=== PATIENT | female | born 1965 | race Caucasian/White ===

== ENCOUNTER 2017-11-15 20:28 | Emergency (ER) | payer OTHER ==
[~2017-11-15] VITALS: Ht 157.5 cm; Wt 90.7 kg
[2017-11-15] MEDS ORDERED: ELIQUIS5 MG PO (20:45)
[2017-11-15] MEDS ORDERED: KEFLEX500 M1 PO (22:12)
[2017-11-15 22:44] VITALS: BP 121/67
== END 2017-11-15 22:45 | disposition home or self-care (01) ==
LOC: ER 20:28
DX: L03.116 Cellulitis of left lower limb (principal); Z86.718 Personal history of other venous thrombosis and embolism